=== PATIENT | female | born 1980 | race Native Hawaiian/Other Pacific Islander ===

== ENCOUNTER 2017-05-29 22:57 | Emergency (ER) | payer OTHER ==
[2017-05-29 23:12] VITALS: O2SAT 100
--- NOTE | 2017-05-30 00:17 | C.PDOC ---
History Of Present Illness 36 year old female presents to the ED with complaints of vaginal bleeding beginning earlier tonight with mild hypogastric pain. Patient had a positive test at home and denies fever, chills, nausea, or vomiting. Chief Complaint (Nursing): Female Genitourinary History Per: Patient History/Exam Limitations: no limitations Onset/Duration Of Symptoms: Hrs Current Symptoms Are (Timing): Still Present Quality Of Discomfort: "Pain" Associated Symptoms: denies: Fever, Chills, Nausea, Vomiting, Urinary Symptoms Alleviating Factors: None Recent travel outside of the [place]: No Abnormal Vaginal Bleeding: Yes Past Medical History Reviewed: Historical Data, Nursing Documentation, Vital Signs Vital Signs: Last Vital Signs Temp 98.3 F 05/29/17 23:07 Pulse 76 05/29/17 23:07 Resp 20 05/29/17 23:07 BP 101/67 05/29/17 23:07 Pulse Ox 100 05/30/17 02:50 Family History: States: Unknown Family Hx - Social History Hx Alcohol Use: No Hx Substance Use: No - Immunization History Hx Tetanus Toxoid Vaccination: No Hx Influenza Vaccination: No Hx Pneumococcal Vaccination: No Review Of Systems Constitutional: Negative for: Fever, Chills Cardiovascular: Negative for: Chest Pain, Palpitations Respiratory: Negative for: Cough, Shortness of Breath Gastrointestinal: Positive for: Abdominal Pain. Negative for: Nausea, Vomiting Genitourinary: Positive for: Vaginal Bleeding Physical Exam - Physical Exam Appears: Non-toxic, No Acute Distress Skin: Warm, Dry Head: Atraumatic, Normacephalic Eye(s): bilateral: Normal Inspection, PERRL, EOMI Oral Mucosa: Moist Neck: Normal ROM, Supple Chest: Symmetrical, No Deformity Cardiovascular: Rhythm Regular, No Murmur Respiratory: Normal Breath Sounds, No Rales, No Rhonchi, No Wheezing Gastrointestinal/Abdominal: Soft, No Tenderness, No Distention, No Guarding, No Rebound Pelvic: Normal External Exam, Normal Speculum Exam, No Vaginal Bleeding (no active bleeding, scant bleeding in vaginal vault. ), No Cervical Motion Tenderness, No Cervix Open (closed) ED Course And Treatment - Laboratory Results Result Diagrams: 05/30/17 00:38 05/30/17 00:38 O2 Sat by Pulse Oximetry: 100 (RA) - CT Scan/US US Other Rad Studies (CT/US): Read By Radiologist, Radiology Report Reviewed CT/US Interpretation: FINDINGS: Gestation: A single intrauterine gestation is identified with a crown-rump length of 18.4 mm,. corresponding to an approximate gestational age of 8 weeks and 2 days. cardiac activity is identified a rate of 154 beats per minute. Placenta/amniotic fluid: Cannot be adequately evaluated due to the early gestational age. Uterus/cervix: Bicornuate uterus. Ovaries: Unremarkable in echogenicity and size measuring 3.3 x 2.0 x 2.8 cm on the right and 2.8 x. 1.3 x 2.4 cm on the left. No mass. Normal blood flow. Free fluid: No free fluid. IMPRESSION: Single intrauterine gestation with approximate gestational age of 8 weeks and 2 days. cardiac activity is identified. Bicornuate uterus. Progress Note: US and blood work were ordered. Disposition Counseled Patient/Family Regarding: Diagnosis - Disposition Referrals: [facility] at [facility] [Outside] Disposition: HOME/ ROUTINE Disposition Time: 02:49 Condition: STABLE Instructions: Threatened Miscarriage (ED) Forms: [employer] (Yi) - POA Present On Arrival: None - Clinical Impression Clinical Impression: Threatened in first trimester - Scribe Statement The provider has reviewed the documentation as recorded by the Scribe Sophia Morataya All medical record entries made by the Scribe were at my direction and personally dictated by me. I have reviewed the chart and agree that the record accurately reflects my personal performance of the history, physical exam, medical decision making, and the department course for this patient. I have also personally directed, reviewed, and agree with the discharge instructions and disposition.
[2017-05-30 00:45] LABS: BASO % 0.3 % (0.0-2.0); EOS # 0.1 K/uL (0.0-0.7); EOS % 0.8 % (0.0-4.0); HEMATOCRIT 35.9 % (34.0-47.0); LYMPH # 1.5 K/uL (1.0-4.3); LYMPH % 16.8 % (20.0-40.0); MEAN CELL VOLUME 89.5 fL (81.0-99.0); MEAN CORPUSCULAR HEMOGLOBIN 29.5 pg (27.0-31.0); MEAN CORPUSCULAR HGB CONC 32.9 g/dL (33.0-37.0); MEAN PLATELET VOLUME 11.2 fL (7.2-11.7); MONO # 0.5 K/uL (0.0-0.8); MONO % 5.9 % (0.0-10.0); RED CELL DISTRIBUTION WIDTH 13.3 % (11.5-14.5); WHITE BLOOD COUNT 8.9 K/uL (4.8-10.8)
[2017-05-30 01:05] LABS: CHLORIDE 99 mmol/L (98-107)
[2017-05-30 01:06] LABS: POTASSIUM 3.7 mmol/L (3.6-5.2); SODIUM 135 mmol/L (132-148)
[2017-05-30 01:08] LABS: ALB/GLOB RATIO 1.2 (1.0-2.1); AST/SGOT 17 U/L (14-36); BILIRUBIN,TOTAL 0.6 mg/dL (0.2-1.3); CARBON DIOXIDE 18 mmol/L (22-30); GFR AFRICAN-AMERICAN > 60; TOTAL PROTEIN 7.9 g/dL (6.3-8.3)
[2017-05-30 01:09] LABS: ALKALINE PHOSPHATASE 49 U/L (38-126); ALT/SGPT 27 U/L (9-52); BLOOD UREA NITROGEN 8 mg/dL (7-17); CALCIUM 9.5 mg/dl (8.6-10.4); GLUCOSE,RANDOM 79 mg/dL (65-105)
--- NOTE | 2017-05-30 02:42 | US ---
EXAM: US First Trimester, Transabdominal CLINICAL HISTORY: 36 years old, female; Signs and symptoms; Lmp or gestational age (in weeks): 04/03/2017; Other: Vaginal bleeding/preg; ; Additional info: Vaginal bleed TECHNIQUE: Real-time transabdominal obstetrical ultrasound of the maternal pelvis and a first trimester with image documentation. COMPARISON: No relevant prior studies available. FINDINGS: Gestation: A single intrauterine gestation is identified with a crown-rump length of 18.4 mm, corresponding to an approximate gestational age of 8 weeks and 2 days. cardiac activity is identified a rate of 154 beats per minute. Placenta/amniotic fluid: Cannot be adequately evaluated due to the early gestational age. Uterus/cervix: Bicornuate uterus. Ovaries: Unremarkable in echogenicity and size measuring 3.3 x 2.0 x 2.8 cm on the right and 2.8 x 1.3 x 2.4 cm on the left. No mass. Normal blood flow. Free fluid: No free fluid. IMPRESSION: Single intrauterine gestation with approximate gestational age of 8 weeks and 2 days. cardiac activity is identified. Bicornuate uterus.
[2017-05-30 03:06] VITALS: BP 110/71; PULSE 82; RESP 18; TEMP 98.2
== END 2017-05-30 03:07 | disposition home or self-care (01) ==
LOC: C.ER 22:57
DX: O20.0 Threatened abortion (principal); Z3A.08 8 weeks gestation of pregnancy

== ENCOUNTER 2017-06-22 12:04 | Emergency (ER) | payer OTHER ==
[2017-06-22 12:20] VITALS: RESP 18; O2SAT 100
--- NOTE | 2017-06-22 13:24 | C.PDOC ---
History Of Present Illness 36 year old female presents to the ED after being referred by Dr. Pereyra for vaginal bleeding which began last night. Patient states she used 1 pad in 6 hours. Patient denies associated pelvic pain, or UTI symptoms. Patient is . Denies any other associated symptoms. REFERRED DR PEREYRA FOR VAG BLEEDING SINCE LAST NIGHT. 1 PAD IN 6 HOURS. NO ASSOC PELVIC PAIN, UTI SX. NO OTHER ASSOC SX EXAM NAD HEENT NO PALLOR ABD NEG Time Seen by Provider: 06/22/17 12:55 Chief Complaint (Nursing): Female Genitourinary History Per: Patient History/Exam Limitations: no limitations Onset/Duration Of Symptoms: Hrs Current Symptoms Are (Timing): Still Present Quality Of Discomfort: denies: "Pain" Associated Symptoms: denies: Fever, Chills, Urinary Symptoms Additional History Per: Patient Abnormal Vaginal Bleeding: Yes Past Medical History Reviewed: Historical Data, Nursing Documentation, Vital Signs Vital Signs: Last Vital Signs Temp 98.9 F 06/22/17 15:50 Pulse 84 06/22/17 15:50 Resp 18 06/22/17 15:50 BP 101/68 06/22/17 15:50 Pulse Ox 100 06/22/17 15:50 - Medical History PMH: No Chronic Diseases Surgical History: No Surg Hx Family History: States: Unknown Family Hx - Social History Hx Alcohol Use: No Hx Substance Use: No - Immunization History Hx Tetanus Toxoid Vaccination: No Hx Influenza Vaccination: No Hx Pneumococcal Vaccination: No Review Of Systems Genitourinary: Positive for: Vaginal Bleeding. Negative for: Dysuria, Frequency Physical Exam - Physical Exam Appears: Non-toxic, No Acute Distress Skin: Normal Color, Warm, Dry, No Pale Head: Atraumatic, Normacephalic Eye(s): bilateral: Normal Inspection Ear(s): Bilateral: Normal Nose: Normal, No Discharge Oral Mucosa: Moist Throat: Normal, No Erythema, No Exudate Neck: Normal ROM, Supple Extremity: Normal ROM Neurological/Psych: Oriented x3, Normal Speech, Normal Cognition Gait: Steady ED Course And Treatment - Laboratory Results Result Diagrams: 06/22/17 13:45 06/22/17 13:45 O2 Sat by Pulse Oximetry: 100 (on RA) Pulse Ox Interpretation: Normal Progress Note: Labs and US ordered. Progress - Re-Evaluation Re-evaluation Note: 06/22/17 15:33 EXAM UNCH PRIOR. VSS. APPEARS COMFORTABLE. US +IUP. ADVISED FU OBGYN - Data Reviewed Data Reviewed: Lab, Diagnostic imaging, Old records Disposition Counseled Patient/Family Regarding: Studies Performed, Diagnosis - Disposition Referrals: Konrad Pereyra MD [Staff Provider] - Disposition: HOME/ ROUTINE Disposition Time: 15:33 Condition: IMPROVED Instructions: Threatened Miscarriage (ED) Forms: [employer] (Tajik) - Clinical Impression Clinical Impression: Threatened in first trimester - Scribe Statement The provider has reviewed the documentation as recorded by the Scribe (Sayra Sosa) Provider Attestation: All medical record entries made by the Scribe were at my direction and personally dictated by me. I have reviewed the chart and agree that the record accurately reflects my personal performance of the history, physical exam, medical decision making, and the department course for this patient. I have also personally directed, reviewed, and agree with the discharge instructions and disposition.
[2017-06-22 13:48] LABS: BASO % 0.4 % (0.0-2.0); EOS % 0.4 % (0.0-4.0); HEMATOCRIT 35.4 % (34.0-47.0); LYMPH # 0.9 K/uL (1.0-4.3); MEAN CELL VOLUME 90.2 fL (81.0-99.0); MEAN CORPUSCULAR HEMOGLOBIN 30.7 pg (27.0-31.0); MEAN PLATELET VOLUME 9.7 fL (7.2-11.7); MONO # 0.4 K/uL (0.0-0.8); MONO % 4.8 % (0.0-10.0); RED CELL DISTRIBUTION WIDTH 13.6 % (11.5-14.5); WHITE BLOOD COUNT 8.5 K/uL (4.8-10.8)
[2017-06-22 14:00] LABS: RBC URINE 34 /hpf (0-3); URINE BILIRUBIN NEGATIVE (NEGATIVE); URINE BLOOD 3+ (NEGATIVE); URINE COLOR Yellow (YELLOW); URINE GLUCOSE (UA) NORMAL (Normal); URINE KETONE NEGATIVE (NEGATIVE); URINE LEUKOCYTE ESTERASE NEG Leu/uL (Negative); URINE PROTEIN NEGATIVE (NEGATIVE); URINE UROBILINOGEN NORMAL mg/dL (0.2-1.0); WBC URINE 1 /hpf (0-5)
[2017-06-22 14:01] LABS: CHLORIDE 98 mmol/L (98-107); POTASSIUM 3.4 mmol/L (3.6-5.2); SODIUM 132 mmol/L (132-148)
[2017-06-22 14:04] LABS: BLOOD UREA NITROGEN 6 mg/dL (7-17); CARBON DIOXIDE 24 mmol/L (22-30); GFR AFRICAN-AMERICAN > 60
[2017-06-22 14:05] LABS: GLUCOSE,RANDOM 76 mg/dL (65-105)
--- NOTE | 2017-06-22 15:12 | US ---
Pelvic ultrasound History: . Vaginal bleeding. Comparison: None available. Technique: Real-time sonography was performed through the pelvis. Findings: LMP at 04/03/2017. Beta HCG level is pending. Uterus: 13.0 x 6.4 x 8.9 centimeters. Heterogeneous echotexture. Anteverted. Cervix measures 2.9 centimeters. Rounded heterogeneous lesions seen within the anterior uterus measuring 1.6 x 1.3 x 1.6 centimeters suggestive for a fibroid lesion. Intrauterine with intrauterine gestational sac noted. Mcmurray-rump length measures 4.9 centimeters corresponding to a gestational age of 11 weeks and 5 days. heart rate of 166 beats per minute. No free fluid in the pelvic cul-de-sac. Right ovary: 3.9 x 2.2 x 3.1 centimeters. Normal flow. Left ovary: 2.6 x 1.6 x 2.8 centimeters. Normal flow. Impression: Limited study for viability purposes only. Intrauterine corresponding to a gestational age of approximately 11 weeks and 5 days by crown-rump length of 4.9 centimeters. heart rate of 166 beats per minute. Heterogeneous rounded lesion seen within the anterior uterus measuring 1.6 x 1.3 x 1.6 centimeters suggestive for a fibroid lesion. Limited 1st trimester ultrasound for viability purposes only. Continued interval followup with serial ultrasound, serial HCG levels, and gynecological consultation would be helpful if clinically indicated.
[2017-06-22 15:51] VITALS: BP 101/68; PULSE 84; TEMP 98.9
== END 2017-06-22 15:55 | disposition home or self-care (01) ==
LOC: C.ER 12:04
DX: O20.0 Threatened abortion (principal); Z3A.11 11 weeks gestation of pregnancy